=== PATIENT | female | born 1980 | race Caucasian/White ===

== ENCOUNTER 2016-11-10 16:59 | Emergency (ER) | payer BC ==
[2016-11-10 17:15] VITALS: TEMP 97.9; O2SAT 99
--- NOTE | 2016-11-10 17:51 | ED PDOC ---
Arrival/HPI - General Historian: Patient - History of Present Illness Symptom Onset: Sudden Symptom Course: Resolved Quality: Other (no pain) - General Chief Complaint: Female Genitourinary Time Seen by Provider: 11/10/16 17:20 - History of Present Illness Narrative History of Present Illness (Text): 11/10/16 17:48 36yr old female presents today with vaginal bleeding. Patient states she was seen by the cost reduction engineer today and sent in by Dr. Ortega for evaluation of rule out threatened . Patient states yesterday she had some lower abdominal cramping. She denies fevers or chills. Complaining of some burning with urination. Denies diarrhea. Complaining of constipation. Patient denies chest pain or shortness of breath. Complaining of morning sickness. Denies vomiting today. No other complaints (Azoia,Mary T) Past Medical History - Provider Review Nursing Documentation Reviewed: Yes - Travel History Have you recently traveled outside [place] w/in the past 3 mons?: No - Tetanus Immunization Tetanus Immunization: Unknown - Psychiatric Hx Substance Use: No Family/Social History - Physician Review Nursing Documentation Reviewed: Yes Family/Social History: Unknown Family HX Smoking Status: Never Smoked Hx Alcohol Use: No Hx Substance Use: No Allergies/Home Meds Allergies/Adverse Reactions: Allergies No Known Allergies Allergy (Verified 11/10/16 17:14) Home Medications: Home Meds Medication Instructions Recorded Confirmed Vit Calc,Iron,Folic 1 each PO DAILY 11/10/16 11/10/16 [ Vitamins] Review of Systems - Review of Systems Constitutional: absent: Fatigue, Fevers Respiratory: absent: SOB, Cough Cardiovascular: absent: Chest Pain, Palpitations Gastrointestinal: Abdominal Pain, Nausea. absent: Constipation, Vomiting Genitourinary Female: Dysuria, Vaginal Bleeding. absent: Frequency, Hematuria, Vaginal Discharge Musculoskeletal: absent: Arthralgias, Back Pain Skin: absent: Rash, Pruritis Psychiatric: absent: Anxiety, Depression Physical Exam Vital Signs Reviewed: Yes Temperature: Afebrile Blood Pressure: Normal Pulse: Regular Respiratory Rate: Normal Appearance: Positive for: Well-Appearing, Non-Toxic, Comfortable Pain Distress: None Mental Status: Positive for: Alert and Oriented X 3 - Systems Exam Head: Present: Atraumatic Mouth: Present: Moist Mucous Membranes Respiratory/Chest: Present: Clear to Auscultation Cardiovascular: Present: Regular Rate and Rhythm Abdomen: Present: Normal Bowel Sounds. No: Tenderness, Distention, Peritoneal Signs, Rebound, Guarding Genitourinary/Pelvic Exam: Present: Normal External Genitalia, Vaginal Bleeding (small amount of bleeding noted), Other (chaparoned by therese donis rn). No: Vaginal Discharge Back: Present: Normal Inspection Upper Extremity: Present: Normal ROM Lower Extremity: Present: Normal ROM. No: Edema Neurological: Present: GCS=15, Speech Normal Skin: Present: Warm, Dry, Normal Color. No: Rashes Psychiatric: Present: Alert, Oriented x 3 Vital Signs Temp Pulse Resp BP Pulse Ox 11/10/16 20:22 70 18 129/80 99 11/10/16 19:46 68 16 128/75 99 11/10/16 17:14 97.9 F 71 16 129/84 99 Medical Decision Making ED Course and Treatment: 11/10/16 17:52 I was available for consultation during PA evaluation. The chart was reviewed by me, and I agree with disposition. The documented history was done by the physician cash grain grower. The documented physical exam was done by the physician cash grain grower. The documented procedures were done by the physician cash grain grower. (Wade Thapa) 11/10/16 17:51 Patient is nontoxic well appearing in no distress. stable vitals. sent in my dr. ortega (oil lease buyer) CBC: WNL CMP: WNL Beta hC TYPE AND SCREEN: A+ Urinalysis:+ nitrates, + leukocytes, + wbcs 15-20 Ultrasound: Findings: The uterus measures approximately 12.9 x 8.8 x 10.5 cm. Anteverted. Cervix length measures approximately 3.4 cm. Probable fibroid within the lower uterine segment measures approximately 1.7 x 1.6 x 1.6 cm. There is a single intrauterine fetus present. 4 mm yolk sac. The gestational sac measures 3.8 cm and is compatible with a gestational age of 9 weeks 0 days. The crown-rump length measures 2.3 cm and is compatible with a gestational age of 9 weeks 0 days. There is heart motion which measured 169 BPM. Small pelvic free fluid. Bilateral ovaries are not visualized. Impression: Live single intrauterine with estimated gestational age 9 weeks 0 days. heart rate 169 bpm. Advise an anomaly screen at 16-18 weeks gestational age Bilateral ovaries are not visualized. 1.7 cm probable fibroid, lower uterine segment. Small pelvic free fluid. Discussed all the results the patient. case discussed with dr. ortega; pts oil lease buyer; discussed results in depth; advised will d/c home with macrobid; f/u in office next week. advised pelvic rest. advised f/u with the interactive project manager within the next 2 days. advised immediate return if symptoms worsen,persist or if new symptoms develop. Impression: Vaginal bleeding, Threatened , UTI Tylenol every 4 hours as needed for pain Increase fluids nitrofurantoin: 1 tablet twice daily x 10 days. Followup with the trim operator within the next 2 days Return immediately if symptoms worsen persist or if new symptoms develop: High fevers, heavy bleeding, severe abdominal pain, vomiting, diarrhea, dizziness or weakness or any other concerning symptoms develop. (Mary Martinez) - Lab Interpretations Lab Results: 11/10/16 17:50 11/10/16 17:50 Lab Results 11/10/16 19:50: Blood Type Confirm A POSITIVE 11/10/16 17:50: Blood Type A POSITIVE, Antibody Screen Negative, BBK History Checked No verified bt 11/10/16 17:50: WBC 7.2, RBC 5.18, Hgb 15.3, Hct 44.3, MCV 85.5, MCH 29.5, MCHC 34.5, RDW 13.7, Plt Count 302, MPV 10.2, Neutrophils % (Manual) 43 L, Lymphocytes % (Manual) 30, Atypical Lymphs % 4 H, Monocytes % (Manual) 12 H, Eosinophils % (Manual) 11 H, Platelet Evaluation Normal 11/10/16 17:50: Beta HCG, Quant 637007.00 H 11/10/16 17:50: Sodium 137, Potassium 4.0, Chloride 100, Carbon Dioxide 22, Anion Gap 19, BUN 8, Creatinine 0.6, Est GFR ( Amer) > 60, Est GFR (Non- Af Amer) > 60, Random Glucose 90, Calcium 9.7, Total Bilirubin 0.4, AST 33, ALT 24, Alkaline Phosphatase 52, Total Protein 8.8 H, Albumin 4.7, Globulin 4.1, Albumin/Globulin Ratio 1.1 11/10/16 17:35: Urine Color Yellow, Urine Appearance Cloudy, Urine pH 6.0, Ur Specific [place] 1.010, Urine Protein Negative, Urine Glucose (UA) Negative, Urine Ketones Negative, Urine Blood Large H, Urine Nitrate Positive H, Urine Bilirubin Negative, Urine Urobilinogen 0.2, Ur Leukocyte Esterase Large H, Urine RBC 5 - 10, Urine WBC 15 - 20, Ur Epithelial Cells 4 - 5, Urine Bacteria Mod - RAD Interpretation Radiology Orders: 11/10/16 17:47 OB TRANSVAGINAL [US] Stat Disposition/Present on Arrival - Present on Arrival Any Indicators Present on Arrival: No History of DVT/PE: No History of Uncontrolled Diabetes: No Urinary Catheter: No History of Decub. Ulcer: No History Surgical Site Infection Following: None - Disposition Have Diagnosis and Disposition been Completed?: Yes Disposition Time: 19:36 Patient Plan: Discharge - Disposition Diagnosis: Threatened , Urinary tract infection Disposition: HOME/ ROUTINE Condition: GOOD Discharge Instructions (ExitCare): Threatened Miscarriage (ED), Urinary Tract Infection in (ED) Additional Instructions: Tylenol every 4 hours as needed for pain Increase fluids nitrofurantoin: 1 tablet twice daily x 10 days. Followup with the trim operator within the next 2 days PELVIC REST Return immediately if symptoms worsen persist or if new symptoms develop: High fevers, heavy bleeding, severe abdominal pain, vomiting, diarrhea, dizziness or weakness or any other concerning symptoms develop. Prescriptions: Nitrofurantoin Macrocrystals [Macrobid] 100 mg PO BID #20 cap Referrals: Mahi Ortega MD [Family Provider] - Follow up with primary Forms: [employer] (Kiswahili)
[2016-11-10 18:25] LABS: HEMOGLOBIN 15.3 g/dL (12.0-16.0); MEAN CELL VOLUME 85.5 fl (80.0-105.0); MEAN CORPUSCULAR HEMOGLOBIN 29.5 pg (25.0-35.0); MEAN CORPUSCULAR HGB CONC 34.5 g/dl (31.0-37.0); MEAN PLATELET VOLUME 10.2 fl (7.0-11.0); PLATELET COUNT 302 10^3/uL (120.0-450.0); RBC 5.18 10^6/uL (3.5-6.1); RED CELL DISTRIBUTION WIDTH 13.7 % (11.5-14.5); WHITE BLOOD COUNT 7.2 10^3/ul (4.5-11.0)
[2016-11-10 18:27] LABS: URINE BILIRUBIN NEGATIVE (NEGATIVE); URINE BLOOD LARGE (NEGATIVE); URINE GLUCOSE (UA) NEGATIVE (NEGATIVE); URINE LEUKOCYTE ESTERASE LARGE Leu/uL (NEGATIVE); URINE NITRATE POSITIVE (NEGATIVE); URINE PROTEIN NEGATIVE mg/dL (<30 mg/dL); URINE UROBILINOGEN 0.2 E.U./dL (<1 E.U./dL)
[2016-11-10 18:32] LABS: ALB/GLOB RATIO 1.1 (1.1-1.8); ALBUMIN 4.7 g/dL (3.0-4.8); ALT/SGPT 24 U/L (7-56); AST/SGOT 33 U/L (15-39); BLOOD UREA NITROGEN 8 mg/dL (7-21); CALCIUM 9.7 mg/dL (8.4-10.5); GFR AFRICAN-AMERICAN > 60; GFR NON-AFRICAN AMERICAN > 60
[2016-11-10 18:33] LABS: URINE APPEARANCE CLOUDY (CLEAR); URINE COLOR YELLOW (YELLOW)
[2016-11-10 18:55] LABS: ATYPICAL LYMPHOCYTE 4 % (0.0-0.0); EOSINOPHIL 11 % (0.0-3.0); LYMPHOCYTE 30 % (22.0-35.0); MONOCYTE 12 % (1.0-6.0); NEUTROPHIL 43 % (50.0-70.0); PLATELET ESTIMATE NORMAL (NORMAL)
--- NOTE | 2016-11-10 18:59 | US ---
Indication: , bleeding Comparison: None available Technique: Ob transvaginal ultrasound Findings: The uterus measures approximately 12.9 x 8.8 x 10.5 cm. Anteverted. Cervix length measures approximately 3.4 cm. Probable fibroid within the lower uterine segment measures approximately 1.7 x 1.6 x 1.6 cm. There is a single intrauterine fetus present. 4 mm yolk sac. The gestational sac measures 3.8 cm and is compatible with a gestational age of 9 weeks 0 days. The crown-rump length measures 2.3 cm and is compatible with a gestational age of 9 weeks 0 days. There is heart motion which measured 169 BPM. Small pelvic free fluid. Bilateral ovaries are not visualized. Impression: Live single intrauterine with estimated gestational age 9 weeks 0 days. heart rate 169 bpm. Advise an anomaly screen at 16-18 weeks gestational age Bilateral ovaries are not visualized. 1.7 cm probable fibroid, lower uterine segment. Small pelvic free fluid.
[2016-11-10 19:02] LABS: URINE BACTERIA MOD (NEG); URINE WBC 15 - 20 /hpf (0-6)
[2016-11-10 20:22] VITALS: BP 129/80; PULSE 70; RESP 18
== END 2016-11-10 20:24 | disposition home or self-care (01) ==
LOC: ED 16:59 → MERGE 16:59 → ED 20:24
DX: O20.0 Threatened abortion (principal); O23.41 Unspecified infection of urinary tract in pregnancy, first trimester; Z3A.09 9 weeks gestation of pregnancy